=== PATIENT | female | born 1970 | race Caucasian/White ===

== ENCOUNTER 2020-03-02 11:01 | Inpatient (IN) | payer OTHER ==
--- NOTE | 2020-03-02 11:29 | PDOC ---
History of Present Illness - General Chief Complaint: Wound Stated Complaint: CELLULITISTO RIGHT ARM SECONDARY TO BEE STING Time Seen by Provider: 03/02/20 11:11 - History of Present Illness Initial Comments: 03/02/20 12:55 50yo female with hx of afib s/p ablation who works as a cardiothoracic step down nurse at [employer] presents for eval of R hand and arm swelling. Pt states she was stung by a bee on her R ring finger on tuesday. States she took benadryl that night. States on her hand swelling and her finger became black and blue. Pt states her hand became red on tuesday and she went to urgent care where they started her on bactroban, keflex for cellulitis. Pt states she has been taking the meds for 3 days, but today the redness spread up her arm to her elbow. States swelling in the hand and ecchymosis his improved, but the redness is spreading. Pt states she was using topical steroid cream as well. Pt denies f/c. No cough/congestion. no cp/sob. No palpitations. No diarrhea. No n/v. No abd pain. No dysuria. no other complaints. Past History - Medical History Allergies/Adverse Reactions: Allergies Allergy/AdvReac Type Severity Reaction Status Date / Time No Known Allergies Allergy Unverified 03/02/20 11:04 Home Medications: Ambulatory Orders Alprazolam [Xanax] 0.5 mg PO HS 03/02/20 Cephalexin [Keflex] 500 mg PO QID 03/02/20 Mupirocin Cream [Bactroban 2% Cream -] 1 applic TP TID 03/02/20 Prednisone 20 mg PO DAILY 03/02/20 Sulfamethoxazole/Trimethoprim [Bactrim Ds -] 1 tab PO BID 03/02/20 Cardiac Disorders: Yes (PAROXSYMAL ATRIAL FIBRILLATION) COPD: No - Immunization History Immunization Up to Date: No - Psycho-Social/Smoking History Smoking History: Never smoked Information on smoking cessation initiated: No - Substance Abuse Hx (Audit-C & DAST Scrn) How often the patient has a drink containing alcohol: 2-3 times / week Number of drinks the patient has on a typical day: 1 or 2 Score: In Men: 4 or > Positive; In Women: 3 or > Positive: 3 Screen Result (Pos requires Nsg. Audit-10AR): Positive In the last yr the pt used illegal drug/Rx for NonMed reason: No Score: Yes response is considered Positive: 0 Screen Result (Positive result requires Nsg. DAST-10): Negative Review of Systems - Review of Systems Able to Perform ROS?: Yes Is the patient limited Japanese proficient: No Constitutional: No: Chills, Fever HEENTM: No: Nose Congestion, Throat Pain Respiratory: No: Cough, Shortness of Breath Cardiac (ROS): No: Chest Pain, Lightheadedness, Palpitations ABD/GI: No: Diarrhea, Nausea, Vomiting, Abdominal cramping : No: Burning, Dysuria Musculoskeletal: Yes: Joint Swelling Integumentary: Yes: Bruising, Change in Color, Erythema, Pruritus Neurological: No: Headache, Numbness, Paresthesia, Tingling, Tremors, Weakness, Ataxia All Other Systems: Reviewed and Negative *Physical Exam - Vital Signs Last Vital Signs Temp Pulse Resp BP Pulse Ox 96.9 F L 70 16 138/83 100 03/02/20 11:03 03/02/20 11:03 03/02/20 11:03 03/02/20 11:03 03/02/20 11:03 - Physical Exam General Appearance: Yes: Nourished, Appropriately Dressed. No: Apparent Distress HEENT: positive: EOMI, Normal Voice Neck: positive: Supple Respiratory/Chest: positive: Lungs Clear, Normal Breath Sounds. negative: Chest Tender, Respiratory Distress Cardiovascular: positive: Regular Rhythm, Regular Rate, S1, S2. negative: Edema Gastrointestinal/Abdominal: positive: Soft. negative: Guarding, Rebound, Tenderness Musculoskeletal: positive: Normal Inspection Extremity: positive: Normal Capillary Refill, Normal Range of Motion, Erythema (RHD patient, R middle finger with ecchymosis, no signs of flexor tendonitis, b risk cap refill, sensation intact, R hand with redness and warmth that extends up the volar aspect of the forearm to the elbow, no elbow involvement, from the hand and wrist), Inflammation Integumentary: positive: Erythema, Ecchymosis (as described above) Neurologic: positive: Fully Oriented, Alert, Normal Response, Motor Strength 5/5 Heart Score/ECG Review - ECG Intrepretation Comment:: 03/02/20 12:24 sinus christa at 57, nl axis, nl interval, no acute st/t wave findings ED Treatment Course - LABORATORY CBC & Chemistry Diagram: 03/02/20 12:02 03/02/20 11:44 Medical Decision Making - Medical Decision Making 03/02/20 12:24 a/p: 50yo female with a bee sting to the R hand - middle finger with redness and swelling that is spreading up her arm despite keflex and bactroban topical ointment -pt with cellulitis secondary to the bee sting that failed outpt abx -will send labs, cultures -will start iv abx -will need admission for iv abx -ecchymosis and swelling of the finger has improved, but redness and swelling up the arm has increased -will monitor and reassess 03/02/20 13:03 no elevated wbc upreg neg abx and cultures ordered 03/02/20 13:04 cxr clear 03/02/20 13:04 chem pending microblog sent to [facility] for admission 03/02/20 13:07 chem reviewed and stable 03/02/20 13:11 case discussed with Ramona from [facility] who accepts pt to service Discharge - Discharge Information Problems reviewed: Yes Clinical Impression/Diagnosis: Cellulitis, Bee sting reaction Condition: Fair - Admission Yes - Follow up/Referral Referrals: Basilio Call [Primary Care Provider] - - Patient Discharge Instructions - Post Discharge Activity
[2020-03-02] MEDS ORDERED: VANCOMYCIN 1 GM in D5W (PRE-DOCKED) 1,000 MG/250 ML IVPB ONE (11:40)
[2020-03-02 12:06] LABS: HCG,QUALITATIVE URINE Negative
[2020-03-02 12:11] LABS: BASO % 2.1 % (0-2.0); EOS % 0.2 % (0-4.5); MCH 31.2 pg (25.7-33.7); MCHC 33.2 g/dl (32.0-36.0); MEAN CELL VOLUME 94.1 fl (80-96); MEAN PLT VOLUME 8.8 fl (7.5-11.1); NEUT % 76.8 % (42.8-82.8); PLATELET COUNT 297 K/MM3 (134-434); RBC 4.32 M/mm3 (3.60-5.2); WHITE BLOOD COUNT 9.7 K/mm3 (4.0-10.8)
[2020-03-02] MEDS ORDERED: VANCOMYCIN 1,000 MG VIAL (RESTRICTED TO ID ONLY) ONE (12:14)
[2020-03-02 12:31] LABS: ALBUMIN 4.5 g/dl (3.4-5.0); BILIRUBIN,TOTAL 0.4 mg/dl (0.2-1); CALCIUM 9.9 mg/dl (8.5-10); CREATININE 1.1 mg/dl (0.55-1.3); POTASSIUM 3.6 mmol/L (3.5-5.1)
[2020-03-02 12:31] LABS: HEMATOCRIT 40.7 % (32.4-45.2); HEMOGLOBIN 13.5 GM/dl (10.7-15.3); LYMPH % 16.2 % (8-40)
[2020-03-02 12:32] LABS: MONO % 0.5 % (3.8-10.2)
[2020-03-02 12:53] LABS: EPITHELIAL CELLS FEW /hpf
[2020-03-02] MEDS ORDERED: ACETAMINOPHEN 325 MG TABLET (FP) PO PRN (13:19)
--- NOTE | 2020-03-02 14:04 | HP ---
CHIEF COMPLAINT: Rt hand cellulitis PCP:Basilio Call HISTORY OF PRESENT ILLNESS: This is a 50 year old female with hx of paroxysmal afib, s/p ablation now in NSR, who presents to the ED for the evaluation of worsening Rt middle finger pain,redness and swelling that is spreading up to her arm. Pt states that she was stung by a bee on her R middle finger on Tuesday, states she took Benadryl and applied Hydrocortisone cream that night. On the next day, noted Rt hand with redness, swelling and Rt middle finger ecchymosis. Went to Urgent care on Tuesday, started on Keflex 500mg QID, Bactrim DS BID, [id number] BID and Bacitracin topical ointment, now with worsening redness spreading to forearm with pruritus. Denies fever, chills, numbness, tingling sensation, weakness, cough, cp, sob, palpitations, abdominal pain,N/V/D or urinary symptoms. 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 Covid test done in ER, report pending. ER course was notable for: (1) WBC 9.7, lactic acid pending, Na 134 , Covid pending (2)CxR: Maryjo cute lung pathology - ready by me (3)EKG : SB 57, no acute ST changes Recent Travel: [place] PAST MEDICAL HISTORY: As mentioned above PAST SURGICAL HISTORY: S/P ablation in 2014 Social History: Smoking:No Alcohol: 2-3 glasses of wine few times a week Drugs: None Allergies No Known Allergies Allergy (Unverified 03/02/20 11:04) HOME MEDICATIONS: Home Medications Medication Instructions Recorded Alprazolam [Xanax] 0.5 mg PO HS 03/02/20 Cephalexin [Keflex] 500 mg PO QID 03/02/20 Mupirocin Cream [Bactroban 2% 1 applic TP TID 03/02/20 Cream -] Prednisone 20 mg PO DAILY 03/02/20 Sulfamethoxazole/Trimethoprim 1 tab PO BID 03/02/20 [Bactrim Ds -] REVIEW OF SYSTEMS CONSTITUTIONAL: Absent: fever, chills, diaphoresis, generalized weakness, malaise, loss of appetite, weight change HEENT: Absent: rhinorrhea, nasal congestion, throat pain, throat swelling, difficulty swallowing, mouth swelling, ear pain, eye pain, visual changes CARDIOVASCULAR: Absent: chest pain, syncope, palpitations, irregular heart rate, light headedness, peripheral edema RESPIRATORY: Absent: cough, shortness of breath, dyspnea with exertion, orthopnea, wheezing, stridor, hemoptysis GASTROINTESTINAL: Absent: abdominal pain, abdominal distension, nausea, vomiting, diarrhea, constipation, melena, hematochezia GENITOURINARY: Absent: dysuria, frequency, urgency, hesitancy, hematuria, flank pain, genital pain MUSCULOSKELETAL: Rt middle finger with pain/ burning sensation, redness and swelling up to forearm. Absent: myalgia, arthralgia, joint swelling, back pain, neck pain SKIN: Absent: rash, itching, pallor HEMATOLOGIC/IMMUNOLOGIC: Absent: easy bleeding, easy bruising, lymphadenopathy, frequent infections ENDOCRINE: Absent: unexplained weight gain, unexplained weight loss, heat intolerance, cold intolerance NEUROLOGIC: Absent: headache, focal weakness or paresthesias, dizziness, unsteady gait, seizure, mental status changes, bladder or bowel incontinence PSYCHIATRIC: Absent: anxiety, depression, suicidal or homicidal ideation, hallucinations. PHYSICAL EXAMINATION Vital Signs - 24 hr 03/02/20 03/02/20 11:03 12:59 Temperature 96.9 F L Pulse Rate 70 Respiratory 16 Rate Blood Pressure 138/83 138/83 O2 Sat by Pulse 100 Oximetry (%) GENERAL: Awake, alert, and fully oriented, in no acute distress. HEAD: Normal with no signs of trauma. EYES: Pupils equal, round and reactive to light, extraocular movements intact, sclera anicteric, conjunctiva clear. No lid lag. EARS, NOSE, THROAT: Ears normal, nares patent, oropharynx clear without exudates. Moist mucous membranes. NECK: Normal range of motion, supple without lymphadenopathy, JVD, or masses. LUNGS: Breath sounds equal, clear to auscultation bilaterally. No wheezes, and no crackles. No accessory muscle use. HEART: Regular rate and rhythm, normal S1 and S2 without murmur, rub or gallop. ABDOMEN: Soft, nontender, not distended, normoactive bowel sounds, no guarding, no rebound, no masses. No hepatomegaly or splenomegaly. MUSCULOSKELETAL: Normal range of motion at all joints. No bony deformities or tenderness. No CVA tenderness. UPPER EXTREMITIES: 2+ pulses, warm, well-perfused. No cyanosis. No clubbing. No peripheral edema. LOWER EXTREMITIES: 2+ pulses, warm, well-perfused. No calf tenderness. No peripheral edema. NEUROLOGICAL: Cranial nerves II-XII intact. Normal speech. Normal gait. PSYCHIATRIC: Cooperative. Good eye contact. Appropriate mood and affect. SKIN: Warm, dry, normal turgor, no rashes or lesions noted, normal capillary refill. Rt middle finger with redness/ecchymosis,Rt hand with redness and warmth that extends up to the forearm to the elbow, no elbow involvement, ROM intact, pulse present, non- tender. Laboratory Results - last 24 hr 03/02/20 03/02/20 03/02/20 11:44 11:58 12:02 WBC 9.7 RBC 4.32 Hgb 13.5 Hct 40.7 MCV 94.1 MCH 31.2 MCHC 33.2 RDW 14.0 Plt Count 297 MPV 8.8 Absolute Neuts (auto) 7.4 Neutrophils % 76.8 Lymphocytes % 16.2 Monocytes % 0.5 L Eosinophils % 0.2 Basophils % 2.1 H Sodium 134 L Potassium 3.6 Chloride 99 Carbon Dioxide 23 Anion Gap 12 BUN 15.0 Creatinine 1.1 Est GFR (CKD-EPI)AfAm 68.27 Est GFR (CKD-EPI)NonAf 58.91 Random Glucose 91 Calcium 9.9 Total Bilirubin 0.4 AST 17 ALT 23 Alkaline Phosphatase 49 Total Protein 7.0 Albumin 4.5 Urine Color Yellow Urine Appearance Clear Urine pH 7.0 Urine Protein Negative Urine Glucose (UA) Negative Urine Ketones Negative Urine Blood Trace-intact Urine Nitrite Negative Urine Bilirubin Negative Urine Urobilinogen 0.2 Ur Leukocyte Esterase Negative Urine RBC 2-5 Urine WBC 0-2 Ur Transition Epith Cell Few Urine Bacteria Rare Urine HCG, Qual Negative ASSESSMENT/PLAN: 50 year old female with hx of paroxysmal afib, s/p ablation now in NSR, who presents to the ED for the evaluation of worsening Rt middle finger pain,redness and swelling that is spreading up to her arm. Admitted with Rt hand cellulitis. *Rt hand cellulitis, s/p bee sting, out pt tx failure on Keflex and Bactrim -BC done -afebrile with no leukocytosis -s/p Vanco in ER, will cont -ID consult -Keep Rt hand elevated -pain control *VTE :Lovenox *F/E/N: Regular diet Replace electrolyte as needed Visit type - Emergency Visit Emergency Visit: Yes ED Registration Date: 03/02/20 Care time: The patient presented to the Emergency Department on the above date and was hospitalized for further evaluation of their emergent condition. - New Patient This patient is new to me today: Yes Date on this admission: 03/02/20 - Critical Care Critical Care patient: No
[2020-03-02 14:11] VITALS: BMI 20.9
[2020-03-02] MEDS: ENOXAPARIN NA (PORCINE) 40 MG/0.4 ML DISP.SYRIN SQ SCH (14:12)
[2020-03-02] MEDS ORDERED: ALPRAZolam 1 MG TABLET PO PRN (14:25)
--- NOTE | 2020-03-02 19:12 | CON.ID ---
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 Pt states she had a bee sting 4 days ago in her Rt middle finger and took Benadryl but the following day noticed her finger swelling and slightly darkened discoloration at the sting site. 2 days ago she went to Urgent Care and was prescribed Keflex, Bactrim po, and prednisone which she started taking. Her hand swelling improved but she noted slightly red streaks extending up her forearm with palpable LNs and a sensation of tightness. Pt denies fever/chills or any other symptoms other than itching at site of bee sting. 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 No: Aneurysm, Aortic Insufficiency, Aortic Stenosis, CAD, CHF, Deep Vein Thrombosis, HTN, Hyperlipdemia, CA, Mitral Insufficiency, Mitral Stenosis, Murmur, Pulmonary Hypertension, Other Pulmonary: No: Asthma, Bronchitis, Cancer, COPD, O2 Dependent, Pneumonia, Previously Intubated, Pulmonary Embolus, Pulmonary Fibrosis, Sleep Apnea, Other Gastrointestinal: No: Ascites, Cancer, Constipation, Crohn's Disease, Dive rticulitis, Diverticulosis, Esophageal Varices, Gastritis, GERD, GI Bleed, Hemorrhoids, Hiatal Hernia, Inflamatory Bowel Disease, Irritable Bowel Disease, Pancreatitis, Peptic Ulcer Disease, Ulcerative Colitis, Other Hepatobiliary: No: Cirrhosis, Cholelithiasis, Cholecystitis, Choledocholithiasis, Hepatitis A, Hepatitis B, Hepatitis C, Other Renal/: No: Renal Failure, Renal Inusuff, BPH, Cancer, Hematuria, Hemodialysis, Neurogenic Bladder, Renal Calculi, UTI, Other Reproductive: No: Ectopic , Endometriosis, Fibroids, PID, Polycystic Ovary Syndrome, Postmenopausal, Other Heme/Onc: No: Anemia, B12 Deficiency, Bleeding Disorder, Cancer, Current Chemotherapy, Current Radiation Therapy, Hemochromatosis, Hypercoaguable State, Myeloproliferative Synd, Sickle Cell Disease, Sickle Cell Trait, Thrombocytopenia, Other Infectious Disease: No: AIDS, C-Diff, Herpes Zoster, HIV, MRSA, STD's, Tuberculosis, VREF, Other Psych: No: Addictions, Anxiety, Bipolar, Depression, Panic, Psychosis, Schizophrenia, Other Musculoskeletal: No: Bursitis, Chronic low back pain, Hemiparesis, Hemiplegia, Osteoarthritis, Paraplegia, Other Rheumatology: No: Fibromyalgia, Gout, Lupus, Rheumatoid Arthritis, Sarcoidosis, Vasculitis, Other ENT: No: Allergic Rhinitis, Sinusitis, Other Endocrine: No: Carl's Disease, Kvng's Disease, Diabetes Insipidus, Di abetes Mellitus, Hyperparathyroidism, Hyperthyroidism, Hypothyroidism, Osteopenia, SIADH, Other Dermatology: No: Basal Cell, Cellulitis, Eczema, Melanoma, Psoriasis, Squamous Cell, Other - Smoking History Smoking history: Never smoked - Social History Occupation: Nurse History of Recent Travel: No Home Medications - Allergies Allergies/Adverse Reactions: Allergies Allergy/AdvReac Type Severity Reaction Status Date / Time No Known Allergies Allergy Unverified 03/02/20 11:04 - Home Medications Home Medications: Ambulatory Orders Alprazolam [Xanax] 0.5 mg PO HS 03/02/20 Cephalexin [Keflex] 500 mg PO QID 03/02/20 Mupirocin Cream [Bactroban 2% Cream -] 1 applic TP TID 03/02/20 Prednisone 20 mg PO DAILY 03/02/20 Sulfamethoxazole/Trimethoprim [Bactrim Ds -] 1 tab PO BID 03/02/20 Review of Systems - Review of Systems Constitutional: reports: No Symptoms Eyes: reports: No Symptoms HENT: reports: No Symptoms Neck: reports: No Symptoms Cardiovascular: reports: No Symptoms Respiratory: reports: No Symptoms Gastrointestinal: reports: No Symptoms Genitourinary: reports: No Symptoms Breasts: reports: No Symptoms Reported Integumentary: reports: Erythema (Rt hand) Neurological: reports: No Symptoms Hematology/Lymphatic: reports: No Symptoms Psychiatric: reports: No Symptoms Physical Exam Vital Signs: Vital Signs Temperature 98 F 03/02/20 13:55 Pulse Rate 60 03/02/20 13:55 Respiratory Rate 18 03/02/20 13:55 Blood Pressure 128/74 03/02/20 13:55 O2 Sat by Pulse Oximetry (%) 100 03/02/20 13:55 Musculoskeletal: Yes: WNL Extremities: Yes: Erythema (Rt hand erythema/mild swelling (reports improvement) with Rt finger slight echymosis. +slight streaking up forearm with LN palpable. +FROM hand/wrist/elbow joints. No noted swelling of joints. No tenderness.) Peripheral Pulses WNL: Yes Integumentary: Yes: WNL Neurological: Yes: Alert, Oriented ...Motor Strength: WNL Psychiatric: Yes: Alert, Oriented Labs: CBC, BMP 03/02/20 12:02 03/02/20 11:44 Laboratory Tests 03/02/20 03/02/20 03/02/20 11:44 11:58 12:02 WBC 9.7 RBC 4.32 Hgb 13.5 Hct 40.7 MCV 94.1 MCH 31.2 MCHC 33.2 RDW 14.0 Plt Count 297 MPV 8.8 Absolute Neuts (auto) 7.4 Neutrophils % 76.8 Lymphocytes % 16.2 Monocytes % 0.5 L Eosinophils % 0.2 Basophils % 2.1 H Sodium 134 L Potassium 3.6 Chloride 99 Carbon Dioxide 23 Anion Gap 12 BUN 15.0 Creatinine 1.1 Est GFR (CKD-EPI)AfAm 68.27 Est GFR (CKD-EPI)NonAf 58.91 Random Glucose 91 Lactic Acid Calcium 9.9 Total Bilirubin 0.4 AST 17 ALT 23 Alkaline Phosphatase 49 Total Protein 7.0 Albumin 4.5 Urine Color Yellow Urine Appearance Clear Urine pH 7.0 Urine Protein Negative Urine Glucose (UA) Negative Urine Ketones Negative Urine Blood Trace-intact Urine Nitrite Negative Urine Bilirubin Negative Urine Urobilinogen 0.2 Ur Leukocyte Esterase Negative Urine RBC 2-5 Urine WBC 0-2 Ur Transition Epith Cell Few Urine Bacteria Rare Urine HCG, Qual Negative 03/02/20 12:06 WBC RBC Hgb Hct MCV MCH MCHC RDW Plt Count MPV Absolute Neuts (auto) Neutrophils % Lymphocytes % Monocytes % Eosinophils % Basophils % Sodium Potassium Chloride Carbon Dioxide Anion Gap BUN Creatinine Est GFR (CKD-EPI)AfAm Est GFR (CKD-EPI)NonAf Random Glucose Lactic Acid 1.8 Calcium Total Bilirubin AST ALT Alkaline Phosphatase Total Protein Albumin Urine Color Urine Appearance Urine pH Urine Protein Urine Glucose (UA) Urine Ketones Urine Blood Urine Nitrite Urine Bilirubin Urine Urobilinogen Ur Leukocyte Esterase Urine RBC Urine WBC Ur Transition Epith Cell Urine Bacteria Urine HCG, Qual Problem List - Problems (1) Bee sting reaction Code(s): T63.441A - TOXIC EFFECT OF VENOM OF BEES, ACCIDENTAL, INIT (2) Cellulitis Code(s): L03.90 - CELLULITIS, UNSPECIFIED 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 Some improvement with Keflex/Bactrim started 2 days ago. Pictures taken by pt with her phone. Rt hand cellulitis/forearm lymphangitis Bee sting -- increase Vancomycin to BID, monitor renal function, Vancomycin trough prior to 4th dose -- esr/crp -- Xray of RUE, consider CT of hand -- follow up blood culture results -- COVID results pending (low suspicion), isolation/precautions in place -- pt is afebrile, without leukocytosis continue monitor Will follow Thank you
[2020-03-02] MEDS: VANCOMYCIN 1 GRAM (PRE-DOCKED) 1,000 MG/250 ML BAG IVPB SCH (21:19)
--- NOTE | 2020-03-03 08:00 | PN ---
Physical Exam: SUBJECTIVE: Patient seen and examined at bedside. First time seeing patient. 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 She has photos of her hand. She states, and photos demonstrate, swelling in hand is improved. Erythema seen today extending from wrist to forearm is new, developed overnight. Patient had RN demarcate the expanding erythema. OBJECTIVE: Vital Signs Period Temp Pulse Resp BP Sys/Perez Pulse Ox Last 24 Hr 96.9 F-98.6 F 56-70 16-18 101-138/66-83 99-100 GENERAL: The patient is awake, alert, and fully oriented, in no acute distress. LUNGS: Breath sounds equal, clear to auscultation bilaterally HEART: Regular rate and rhythm, S1, S2 without murmur, rub or gallop. ABDOMEN: Soft, nontender, nondistended RUE: Erythema of entire right hand extending upward to forearm, edema resolving; 2+ radial pulse; +flex/extend fingers, sensory intact NEUROLOGICAL: Cranial nerves II through XII grossly intact. Normal speech, gait not observed. Laboratory Results - last 24 hr 03/02/20 03/02/20 03/02/20 11:44 11:58 12:02 WBC 9.7 RBC 4.32 Hgb 13.5 Hct 40.7 MCV 94.1 MCH 31.2 MCHC 33.2 RDW 14.0 Plt Count 297 MPV 8.8 Absolute Neuts (auto) 7.4 Neutrophils % 76.8 Lymphocytes % 16.2 Monocytes % 0.5 L Eosinophils % 0.2 Basophils % 2.1 H Sodium 134 L Potassium 3.6 Chloride 99 Carbon Dioxide 23 Anion Gap 12 BUN 15.0 Creatinine 1.1 Est GFR (CKD-EPI)AfAm 68.27 Est GFR (CKD-EPI)NonAf 58.91 Random Glucose 91 Lactic Acid Calcium 9.9 Total Bilirubin 0.4 AST 17 ALT 23 Alkaline Phosphatase 49 Total Protein 7.0 Albumin 4.5 Urine Color Yellow Urine Appearance Clear Urine pH 7.0 Urine Protein Negative Urine Glucose (UA) Negative Urine Ketones Negative Urine Blood Trace-intact Urine Nitrite Negative Urine Bilirubin Negative Urine Urobilinogen 0.2 Ur Leukocyte Esterase Negative Urine RBC 2-5 Urine WBC 0-2 Ur Transition Epith Cell Few Urine Bacteria Rare Urine HCG, Qual Negative 03/02/20 12:06 WBC RBC Hgb Hct MCV MCH MCHC RDW Plt Count MPV Absolute Neuts (auto) Neutrophils % Lymphocytes % Monocytes % Eosinophils % Basophils % Sodium Potassium Chloride Carbon Dioxide Anion Gap BUN Creatinine Est GFR (CKD-EPI)AfAm Est GFR (CKD-EPI)NonAf Random Glucose Lactic Acid 1.8 Calcium Total Bilirubin AST ALT Alkaline Phosphatase Total Protein Albumin Urine Color Urine Appearance Urine pH Urine Protein Urine Glucose (UA) Urine Ketones Urine Blood Urine Nitrite Urine Bilirubin Urine Urobilinogen Ur Leukocyte Esterase Urine RBC Urine WBC Ur Transition Epith Cell Urine Bacteria Urine HCG, Qual Active Medications Generic Name Dose Route Start Last Admin Trade Name Freq PRN Reason Stop Dose Admin Acetaminophen 650 mg 03/02/20 13:19 Tylenol - PO Q4HPO PRN pain/fever Alprazolam 0.5 mg 03/02/20 14:25 03/02/20 23:31 Xanax PO 0.5 mg HS PRN Administration ANXIETY Enoxaparin Sodium 40 mg 03/02/20 13:30 03/02/20 14:12 Lovenox - SQ 40 mg DAILY SIRIA Administration Vancomycin HCl 1,000 mg in 250 mls @ 166.667 mls/hr 03/02/20 22:00 03/02/20 21:19 Vancomycin (Pre-Docked) IVPB 166.667 mls/hr 1000,2200 SIRIA Administration Protocol Non-Formulary Medication 0.5 mg 03/03/20 22:00 Alprazolam [Xanax] PO HS SIRIA Prednisone 20 mg 03/03/20 10:00 Deltasone - PO DAILY SIRIA ASSESSMENT/PLAN: 50 year-old female with a PMH significant for paroxysmal afib s/p ablation, admitted for cellulitis of right hand following a bee sting. Right upper extremity cellulitis --worsening erythema up the arm, overnight spread from wrist to mid-forearm --CT today shows soft tissue stranding, no discrete fluid collection, no air/gas, no foreign body --add Zosyn --ID following Paroxysmal atrial fibrillation s/p ablation --in sinus rhythm --not on rate controlling meds, not on a/c DVT prophylaxis: subq lovenox Visit type - Emergency Visit Emergency Visit: Yes ED Registration Date: 03/02/20 Care time: The patient presented to the Emergency Department on the above date and was hospitalized for further evaluation of their emergent condition. - New Patient This patient is new to me today: Yes Date on this admission: 03/04/20 - Critical Care Critical Care patient: No
[2020-03-03 08:03] LABS: BASO % 1.5 % (0-2.0); EOS % 0.5 % (0-4.5); HEMATOCRIT 39.1 % (32.4-45.2); HEMOGLOBIN 13.2 GM/dl (10.7-15.3); LYMPH % 32.9 % (8-40); MCH 31.2 pg (25.7-33.7); MCHC 33.7 g/dl (32.0-36.0); MEAN CELL VOLUME 92.6 fl (80-96); MEAN PLT VOLUME 8.7 fl (7.5-11.1); MONO % 8.6 % (3.8-10.2); NEUT % 56.5 % (42.8-82.8); PLATELET COUNT 263 K/MM3 (134-434); RBC 4.22 M/mm3 (3.60-5.2); RDW 13.3 % (11.6-15.6); WHITE BLOOD COUNT 6.6 K/mm3 (4.0-10.8)
[2020-03-03 08:35] LABS: CALCIUM 9.2 mg/dl (8.5-10); CREATININE 1.1 mg/dl (0.55-1.3); MAGNESIUM 2.1 mg/dL (1.8-2.4)
[2020-03-03] MEDS: ENOXAPARIN NA (PORCINE) 40 MG/0.4 ML DISP.SYRIN SQ SCH (09:21)
[2020-03-03] MEDS: predniSONE 10 MG TABLET (UD) PO SCH (09:21)
[2020-03-03] MEDS: VANCOMYCIN 1 GRAM (PRE-DOCKED) 1,000 MG/250 ML BAG IVPB SCH ×2 (09:22→21:31)
--- NOTE | 2020-03-03 10:24 | EKG ---
Test Reason : Blood Pressure : / mmHG Vent. Rate : 057 BPM Atrial Rate : 057 BPM P-R Int : 124 ms QRS Dur : 086 ms QT Int : 422 ms P-R-T Axes : 085 069 042 degrees QTc Int : 410 ms SINUS BRADYCARDIA OTHERWISE NORMAL ECG NO PREVIOUS ECGS AVAILABLE Confirmed by Angélica Carrasquillo ([id number]) on 03/03/2020 10:23:45 AM Referred By: JOHNATHAN SANABRIA Confirmed By:Angélica Carrasquillo
[2020-03-03] MEDS ORDERED: VANCOMYCIN 1,000 MG in DEXTROSE 5%-WATER - 250 ML IVPB SCH (12:00)
[2020-03-03] MEDS ORDERED: SODIUM CHLORIDE 250 ML IV STA (12:31)
[2020-03-03] MEDS ORDERED: PIPERACILLIN/TAZOB 3.375 GM 3.375 GM in DEXTROSE 5%-WATER - 50 ML IVPB SCH (12:45)
[2020-03-03] MEDS ORDERED: SODIUM CHLORIDE 1,000 ML IV SCH (12:45)
--- NOTE | 2020-03-03 12:45 | PN ---
Progress Note, Physician History of Present Illness: hand looks better spread over the forearm noted - Current Medication List Current Medications: Active Medications Acetaminophen (Tylenol -) 650 mg PO Q4HPO PRN PRN Reason: pain/fever Alprazolam (Xanax) 0.5 mg PO HS PRN PRN Reason: ANXIETY Last Admin: 03/02/20 23:31 Dose: 0.5 mg Documented by: Alprazolam (Xanax -) 0.5 mg PO HS SIRIA Enoxaparin Sodium (Lovenox -) 40 mg SQ DAILY [facility] Last Admin: 03/03/20 09:21 Dose: 40 mg Documented by: Vancomycin HCl (Vancomycin (Pre-Docked)) 1,000 mg in 250 mls @ 166.667 mls/hr IVPB 1000,2200 SIRIA; Protocol Last Admin: 03/03/20 09:22 Dose: 166.667 mls/hr Documented by: Piperacillin Sod/Tazobactam (Sod 3.375 gm/ Dextrose) 50 mls @ 100 mls/hr IVPB Q8H-IV SIRIA; Protocol Sodium Chloride (Normal Saline -) 250 mls @ 250 mls/hr IV ASDIR STA Stop: 03/03/20 13:30 Sodium Chloride (Normal Saline -) 1,000 mls @ 50 mls/hr IV ASDIR SIRIA Stop: 03/04/20 12:31 Piperacillin Sod/Tazobactam (Sod 3.375 gm/ Dextrose) 50 mls @ 100 mls/hr IVPB Q8H-IV ISRIA; Protocol Stop: 03/04/20 02:29 Prednisone (Deltasone -) 20 mg PO DAILY [facility] Last Admin: 03/03/20 09:21 Dose: 20 mg Documented by: - Objective Vital Signs: Vital Signs Temperature 99.1 F 03/03/20 10:00 Pulse Rate 64 03/03/20 10:00 Respiratory Rate 18 03/03/20 10:00 Blood Pressure 107/68 03/03/20 10:00 O2 Sat by Pulse Oximetry (%) 100 03/03/20 10:00 Constitutional: Yes: Calm, Mild Distress Cardiovascular: Yes: S1, S2 Respiratory: Yes: Regular, CTA Bilaterally Gastrointestinal: Yes: Normal Bowel Sounds, Soft Musculoskeletal: Yes: WNL Extremities: Yes: Erythema (over the hand and forearm), Other Integumentary: Yes: Erythema Neurological: Yes: Alert, Oriented Psychiatric: Yes: Alert, Oriented Labs: CBC, BMP 03/03/20 07:14 03/03/20 06:00 Assessment/Plan Problem List - Problems (1) Bee sting reaction Code(s): T63.441A - TOXIC EFFECT OF VENOM OF BEES, ACCIDENTAL, INIT (2) Cellulitis Code(s): L03.90 - CELLULITIS, UNSPECIFIED 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 Some improvement with Keflex/Bactrim started 2 days ago. Pictures taken by pt with her phone. Rt hand cellulitis/forearm lymphangitis Bee sting continue abx monitor levels rest as per the team
[2020-03-03] MEDS ORDERED: PIPERACILLIN/TAZOBACTAM 3.375 GM VIAL IVPB ONE ×3 (12:50→20:43)
[2020-03-03] MEDS ORDERED: DEXTROSE 5%-WATER - 50 ML IVPB ONE ×3 (12:50→20:43)
[2020-03-03] MEDS: PIPERACILLIN/TAZOB 3.375 GM 3.375 GM in DEXTROSE 5%-WATER - 50 ML IVPB SCH ×2 (14:40→21:12)
[2020-03-03] MEDS ORDERED: PATIENT'S OWN MEDICATION (NON-FORMULARY) (Alprazolam [Xanax] 0.5 MG) PO SCH (22:00)
[2020-03-03] MEDS: ALPRAZolam 0.25 MG TABLET PO SCH (23:28)
[2020-03-04] MEDS ORDERED: PIPERACILLIN/TAZOBACTAM 3.375 GM VIAL IVPB ONE ×2 (06:23→20:48)
[2020-03-04] MEDS ORDERED: DEXTROSE 5%-WATER - 50 ML IVPB ONE ×2 (06:23→20:48)
[2020-03-04] MEDS: PIPERACILLIN/TAZOB 3.375 GM 3.375 GM in DEXTROSE 5%-WATER - 50 ML IVPB SCH ×4 (06:28→21:22)
[2020-03-04] MEDS: VANCOMYCIN 1 GRAM (PRE-DOCKED) 1,000 MG/250 ML BAG IVPB SCH (09:17)
[2020-03-04] MEDS: ENOXAPARIN NA (PORCINE) 40 MG/0.4 ML DISP.SYRIN SQ SCH (09:17)
[2020-03-04] MEDS: predniSONE 10 MG TABLET (UD) PO SCH (09:18)
[2020-03-04 11:42] LABS: CALCIUM 7.3 mg/dl (8.5-10); CREATININE 0.8 mg/dl (0.55-1.3)
[2020-03-04 11:44] LABS: POTASSIUM 2.9 mmol/L (3.5-5.1)
[2020-03-04] MEDS ORDERED: SODIUM CHLORIDE 0.9%/KCL 20 MEQ/1,000 ML INFUS.BAG IV SCH (11:45)
[2020-03-04] MEDS ORDERED: POTASSIUM CHLORIDE TABS 20 MEQ TABLET.ER (FP) PO ONE (12:00)
[2020-03-04 12:39] LABS: CALCIUM 8.9 mg/dl (8.5-10); CREATININE 0.9 mg/dl (0.55-1.3); POTASSIUM 3.9 mmol/L (3.5-5.1)
--- NOTE | 2020-03-04 13:08 | PN ---
Physical Exam: SUBJECTIVE: Patient seen and examined. Thinks hand is less red and swollen. No fevers/chills. OBJECTIVE: Vital Signs Period Temp Pulse Resp BP Sys/Perez Pulse Ox Last 24 Hr 98.1 F-99.3 F 56-66 16-18 97-116/62-72 99-100 GENERAL: The patient is awake, alert, and fully oriented, in no acute distress. HEAD: Normal with no signs of trauma. EYES: PERRL, extraocular movements intact, sclera anicteric, conjunctiva clear. No ptosis. ENT: Ears normal, nares patent, oropharynx clear without exudates, moist mucous membranes. NECK: Trachea midline, full range of motion, supple. LUNGS: Breath sounds equal, clear to auscultation bilaterally, no wheezes, no crackles, no accessory muscle use. HEART: Regular rate and rhythm, S1, S2 without murmur, rub or gallop. ABDOMEN: Soft, nontender, nondistended, normoactive bowel sounds, no guarding, no rebound, no hepatosplenomegaly, no masses. EXTREMITIES: 2+ pulses, warm, well-perfused. Right had edema and erythema receding from demarcated area. Still warm. NEUROLOGICAL: Cranial nerves II through XII grossly intact. Normal speech, gait not observed. PSYCH: Normal mood, normal affect. SKIN: Warm, dry, normal turgor, no rashes or lesions noted Laboratory Results - last 24 hr 03/04/20 03/04/20 11:05 12:14 Sodium 139 137 Potassium 2.9 L* 3.9 Chloride 113 H 107 Carbon Dioxide 20 L 22 Anion Gap 6 L 8 BUN 11.0 12.0 Creatinine 0.8 0.9 Est GFR (CKD-EPI)AfAm 100.33 87.02 Est GFR (CKD-EPI)NonAf 86.57 75.08 Random Glucose 82 111 H Calcium 7.3 L 8.9 Active Medications Generic Name Dose Route Start Last Admin Trade Name Freq PRN Reason Stop Dose Admin Acetaminophen 650 mg 03/02/20 13:19 Tylenol - PO Q4HPO PRN pain/fever Alprazolam 0.5 mg 03/02/20 14:25 03/02/20 23:31 Xanax PO 0.5 mg HS PRN Administration ANXIETY Alprazolam 0.5 mg 03/03/20 22:00 03/03/20 23:28 Xanax - PO 0.5 mg HS SIRIA Administration Enoxaparin Sodium 40 mg 03/02/20 13:30 03/04/20 09:17 Lovenox - SQ 40 mg DAILY SIRIA Administration Vancomycin HCl 1,000 mg in 250 mls @ 166.667 mls/hr 03/02/20 22:00 03/04/20 09:17 Vancomycin (Pre-Docked) IVPB 166.667 mls/hr 1000,2200 SIRIA Administration Protocol Piperacillin Sod/Tazobactam 50 mls @ 100 mls/hr 03/03/20 12:30 Sod 3.375 gm/ Dextrose IVPB Q8H-IV SIRIA Protocol Piperacillin Sod/Tazobactam 50 mls @ 100 mls/hr 03/04/20 14:00 Sod 3.375 gm/ Dextrose IVPB Q8H SIRIA Protocol Prednisone 20 mg 03/03/20 10:00 03/04/20 09:18 Deltasone - PO 20 mg DAILY SIRIA Administration ASSESSMENT/PLAN: 50 year-old female with a PMH significant for paroxysmal afib s/p ablation, admitted for cellulitis of right hand following a bee sting. Right upper extremity cellulitis --Improving --CT yesterday with soft tissue stranding, no discrete fluid collection, no air/gas, no foreign body --On Zosyn/Vanco - likely dc tomorrow on Augmentin Paroxysmal atrial fibrillation s/p ablation --in sinus rhythm --not on rate controlling meds, not on a/c F/E/N K reported as 2.9 today - repeated without intervention and normal at 3.9 DVT prophylaxis: subq lovenox Visit type - Emergency Visit Emergency Visit: Yes ED Registration Date: 03/02/20 Care time: The patient presented to the Emergency Department on the above date and was hospitalized for further evaluation of their emergent condition. - New Patient This patient is new to me today: Yes Date on this admission: 03/15/20 - Critical Care Critical Care patient: No
--- NOTE | 2020-03-04 13:18 | PN ---
Progress Note, Physician History of Present Illness: stable cellulitis improving - Current Medication List Current Medications: Active Medications Acetaminophen (Tylenol -) 650 mg PO Q4HPO PRN PRN Reason: pain/fever Alprazolam (Xanax) 0.5 mg PO HS PRN PRN Reason: ANXIETY Last Admin: 03/02/20 23:31 Dose: 0.5 mg Documented by: Alprazolam (Xanax -) 0.5 mg PO HS SIRIA Last Admin: 03/03/20 23:28 Dose: 0.5 mg Documented by: Enoxaparin Sodium (Lovenox -) 40 mg SQ DAILY [facility] Last Admin: 03/04/20 09:17 Dose: 40 mg Documented by: Piperacillin Sod/Tazobactam (Sod 3.375 gm/ Dextrose) 50 mls @ 100 mls/hr IVPB Q8H-IV SIRIA; Protocol Piperacillin Sod/Tazobactam (Sod 3.375 gm/ Dextrose) 50 mls @ 100 mls/hr IVPB Q8H [facility]; Protocol Prednisone (Deltasone -) 20 mg PO DAILY [facility] Last Admin: 03/04/20 09:18 Dose: 20 mg Documented by: - Objective Vital Signs: Vital Signs Temperature 98.1 F 03/04/20 06:00 Pulse Rate 56 L 03/04/20 06:00 Respiratory Rate 16 03/04/20 08:42 Blood Pressure 97/62 03/04/20 06:00 O2 Sat by Pulse Oximetry (%) 100 03/04/20 08:42 Constitutional: Yes: No Distress, Calm Respiratory: Yes: Regular, CTA Bilaterally Gastrointestinal: Yes: Normal Bowel Sounds, Soft Musculoskeletal: Yes: WNL Extremities: Yes: WNL Neurological: Yes: Alert, Oriented Psychiatric: Yes: Alert, Oriented Labs: CBC, BMP 03/03/20 07:14 03/04/20 12:14 Assessment/Plan Problem List - Problems (1) Bee sting reaction Code(s): T63.441A - TOXIC EFFECT OF VENOM OF BEES, ACCIDENTAL, INIT (2) Cellulitis Code(s): L03.90 - CELLULITIS, UNSPECIFIED 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 Some improvement with Keflex/Bactrim started 2 days ago. Pictures taken by pt with her phone. Rt hand cellulitis/forearm lymphangitis Bee sting continue abx will stop vanco continue zosyn
[2020-03-04] MEDS ORDERED: PIPERACILLIN/TAZOB 3.375 GM 3.375 GM in DEXTROSE 5%-WATER - 50 ML IVPB SCH (14:00)
[2020-03-04] MEDS: ALPRAZolam 0.25 MG TABLET PO SCH (23:26)
[2020-03-05] MEDS ORDERED: DEXTROSE 5%-WATER - 50 ML IVPB ONE ×2 (06:02→10:59)
[2020-03-05] MEDS ORDERED: PIPERACILLIN/TAZOBACTAM 3.375 GM VIAL IVPB ONE ×2 (06:02→10:59)
[2020-03-05] MEDS: PIPERACILLIN/TAZOB 3.375 GM 3.375 GM in DEXTROSE 5%-WATER - 50 ML IVPB SCH ×2 (06:15→11:15)
[2020-03-05] MEDS: ENOXAPARIN NA (PORCINE) 40 MG/0.4 ML DISP.SYRIN SQ SCH (10:21)
[2020-03-05] MEDS: predniSONE 10 MG TABLET (UD) PO SCH (10:21)
--- NOTE | 2020-03-05 11:00 | PN ---
Progress Note, Physician History of Present Illness: hand looks much better cellulitis improved - Current Medication List Current Medications: Active Medications Acetaminophen (Tylenol -) 650 mg PO Q4HPO PRN PRN Reason: pain/fever Alprazolam (Xanax) 0.5 mg PO HS PRN PRN Reason: ANXIETY Last Admin: 03/02/20 23:31 Dose: 0.5 mg Documented by: Alprazolam (Xanax -) 0.5 mg PO HS [facility] Last Admin: 03/04/20 23:26 Dose: 0.5 mg Documented by: Enoxaparin Sodium (Lovenox -) 40 mg SQ DAILY [facility] Last Admin: 03/05/20 10:21 Dose: 40 mg Documented by: Piperacillin Sod/Tazobactam (Sod 3.375 gm/ Dextrose) 50 mls @ 100 mls/hr IVPB Q8H [facility]; Protocol Last Admin: 03/05/20 06:15 Dose: 100 mls/hr Documented by: Prednisone (Deltasone -) 20 mg PO DAILY [facility] Last Admin: 03/05/20 10:21 Dose: 20 mg Documented by: - Objective Vital Signs: Vital Signs Temperature 98.8 F 03/05/20 06:00 Pulse Rate 58 L 03/05/20 06:00 Respiratory Rate 18 03/05/20 06:00 Blood Pressure 92/56 L 03/05/20 06:00 O2 Sat by Pulse Oximetry (%) 99 03/05/20 08:02 Constitutional: Yes: No Distress, Calm Cardiovascular: Yes: S1, S2 Respiratory: Yes: Regular, CTA Bilaterally Gastrointestinal: Yes: Normal Bowel Sounds, Soft Musculoskeletal: Yes: WNL Extremities: Yes: Erythema (of the hand improved), Other Neurological: Yes: Alert, Oriented Psychiatric: Yes: Alert, Oriented Assessment/Plan Problem List - Problems (1) Bee sting reaction Code(s): T63.441A - TOXIC EFFECT OF VENOM OF BEES, ACCIDENTAL, INIT (2) Cellulitis Code(s): L03.90 - CELLULITIS, UNSPECIFIED 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 Some improvement with Keflex/Bactrim started 2 days ago. Pictures taken by pt with her phone. Rt hand cellulitis/forearm lymphangitis Bee sting continue abx can change to oral augmentin
--- NOTE | 2020-03-05 11:01 | DS ---
Physical Exam: SUBJECTIVE: Patient seen and examined OBJECTIVE: Vital Signs Period Temp Pulse Resp BP Sys/Perez Pulse Ox Last 24 Hr 97.9 F-99.1 F 52-68 18-18 92-118/56-74 97-100 PHYSICAL EXAM GENERAL: The patient is awake, alert, and fully oriented, in no acute distress. LUNGS: Breath sounds equal, clear to auscultation bilaterally HEART: Regular rate and rhythm, S1, S2 without murmur, rub or gallop. ABDOMEN: Soft, nontender, nondistended RUE: Erythema and edema resolving; 2+ radial pulse; +flex/extend fingers, sensory intact NEUROLOGICAL: Cranial nerves II through XII grossly intact. Normal speech, gait not observed. LABS Laboratory Results - last 24 hr 03/04/20 03/04/20 11:05 12:14 Sodium 139 137 Potassium 2.9 L* 3.9 Chloride 113 H 107 Carbon Dioxide 20 L 22 Anion Gap 6 L 8 BUN 11.0 12.0 Creatinine 0.8 0.9 Est GFR (CKD-EPI)AfAm 100.33 87.02 Est GFR (CKD-EPI)NonAf 86.57 75.08 Random Glucose 82 111 H Calcium 7.3 L 8.9 HOSPITAL COURSE: Date of Admission:03/02/20 Date of Discharge: 03/05/20 Pre hospital course This is a 50 year old female with hx of paroxysmal afib, s/p ablation now in NSR, who presents to the ED for the evaluation of worsening Rt middle finger pain,redness and swelling spreading up to her arm. Pt states that she was stung by a bee on her R middle finger on Tuesday, states she took Benadryl and applied Hydrocortisone cream that night. On the next day, noted Rt hand with redness, swelling and Rt middle finger ecchymosis. Went to Urgent care on Tuesday, started on Keflex 500mg QID, Bactrim DS BID, [id number] BID and Bacitracin topical ointment, now with worsening redness spreading to forearm with pruritus. Denies fever, chills, numbness, tingling sensation, weakness, cough, cp, sob, palpitations, abdominal pain,N/V/D or urinary symptoms. 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 Covid test done in ER, report pending. ED course afebrile, no leukocytosis, lactic acid wnl Subsequent hospital course 50 year-old female with a PMH significant for paroxysmal afib s/p ablation, admitted for cellulitis of right hand following a bee sting. Right upper extremity cellulitis --admitted with significant swelling and erythema of right hand; overnight, erythema spread from wrist to mid-forearm --CT demonstrated soft tissue stranding, no discrete fluid collection, no air/gas, no foreign body --treated with Zosyn x 3 days, discharged on augmentin for an additional 7 days Paroxysmal atrial fibrillation s/p ablation --in sinus rhythm during hospital stay --not on rate controlling meds, not on a/c Minutes to complete discharge: 35 Discharge Summary Problems reviewed: Yes Reason For Visit: CELLULITIS-BEE STING Current Active Problems Bee sting reaction (Acute) Cellulitis (Acute) Condition: Improved - Instructions Diet, Activity, Other Instructions: A prescription has been sent to your pharmacy for Augmentin which is an antibiotic. Take this medication as directed. It is recommended you follow up with your primary care provider within 1 week of your discharge. Referrals: Basilio Call [Primary Care Provider] - Disposition: HOME - Home Medications Comprehensive Discharge Medication List: Ambulatory Orders Alprazolam [Xanax] 0.5 mg PO HS 03/02/20 Mupirocin Cream [Bactroban 2% Cream -] 1 applic TP TID 03/02/20 Prednisone 20 mg PO DAILY 03/02/20 Amoxicillin/Potassium Clav [Augmentin 875-125 Tablet] 1 each PO BID #14 tablet 03/05/20 This patient is new to me today: No Emergency Visit: Yes ED Registration Date: 03/02/20 Care time: The patient presented to the Emergency Department on the above date and was hospitalized for further evaluation of their emergent condition. Critical Care patient: No - Discharge Referral Referred to [facility] Med [facility] No
[2020-03-05 11:16] VITALS: BP 95/58; PULSE 60; TEMP 98.9
[2020-03-05 12:30] LABS: BASO % 1.2 % (0-2.0); EOS % 1.6 % (0-4.5); HEMATOCRIT 39.5 % (32.4-45.2); HEMOGLOBIN 13.2 GM/dL (10.7-15.3); LYMPH % 29.9 % (8-40); MCH 32.2 pg (25.7-33.7); MCHC 33.3 g/dl (32.0-36.0); MEAN CELL VOLUME 96.7 fl (80-96); MEAN PLT VOLUME 9.4 fl (7.5-11.1); MONO % 10.7 % (3.8-10.2); NEUT % 56.6 % (42.8-82.8); PLATELET COUNT 247 K/MM3 (134-434); RBC 4.09 M/mm3 (3.60-5.2); WHITE BLOOD COUNT 7.2 K/mm3 (4.0-10.0)
[2020-03-05 13:00] LABS: ALBUMIN 3.6 g/dl (3.4-5.0); BILIRUBIN,TOTAL 0.7 mg/dL (0.2-1); BLOOD UREA NITROGEN 14.8 mg/dL (7-18); CALCIUM 9.1 mg/dL (8.5-10.1); CREATININE 1.1 mg/dL (0.55-1.3); MAGNESIUM 2.3 mg/dL (1.8-2.4); POTASSIUM 3.7 mmol/L (3.5-5.1); TOT PROT 6.4 g/dl (6.4-8.2)
== END 2020-03-05 12:30 | disposition home or self-care (01) | DRG 603 ==
LOC: FER 11:01 → FM/S 12:27
PROVIDERS: ADMIT Internal Medicine; ATTEND Nurse Practitioner Acute Care
DX: L03.011 Cellulitis of right finger (principal); I48.0 Paroxysmal atrial fibrillation; W57.XXXA Bitten or stung by nonvenomous insect and other nonvenomous arthropods, initial encounter; Y92.89 Other specified places as the place of occurrence of the external cause
CPT/HCPCS: 36415; 71045-TC-FY; 73200-TC-RT; 80048; 80053; 81003; 81015; 83605; 83735; 84703; 85025; 87040; 93005; 99285-25; U0003